=== PATIENT | male | born 1975 | race Caucasian/White ===

== ENCOUNTER 2022-10-12 04:18 | Day surgery (SDC) | payer BC ==
[2022-10-08 12:26] VITALS: BMI 31.0
[2022-10-12 14:17] VITALS: RESP 18
[2022-10-12] MEDS ORDERED: ONDANSETRON 4 MG/2 ML VIAL ONE (17:11)
[2022-10-12] MEDS ORDERED: MIDAZOLAM HCL 2 MG/2 ML SINGLE DOSE VIAL ONE (17:11)
[2022-10-12 18:54] VITALS: BP 128/80; PULSE 60; TEMP 98.4
== END 2022-10-12 18:30 | disposition home or self-care (01) ==
LOC: JASU-SURG 04:18
PROVIDERS: ATTEND Urology
PROC: 0TF4XZZ Fragmentation in Left Kidney Pelvis, External Approach (ICD-10-PCS; principal; 2022-10-12 16:00)
DX: N20.0 Calculus of kidney (principal)

== ENCOUNTER 2023-03-01 04:23 | Day surgery (SDC) | payer BC ==
[2023-02-25 11:01] VITALS: BMI 31.0
[2023-03-01 08:59] VITALS: RESP 20
[2023-03-01] MEDS ORDERED: MIDAZOLAM HCL 2 MG/2 ML SINGLE DOSE VIAL ONE (10:50)
[2023-03-01 12:10] VITALS: TEMP 97.5
[2023-03-01 13:18] VITALS: BP 128/96; PULSE 69
== END 2023-03-01 13:20 | disposition home or self-care (01) ==
LOC: JASU-SURG 04:23
PROVIDERS: ATTEND Urology
PROC: 0TF4XZZ Fragmentation in Left Kidney Pelvis, External Approach (ICD-10-PCS; principal; 2023-03-01 10:30)
DX: N20.0 Calculus of kidney (principal)

== ENCOUNTER 2023-10-25 04:17 | Day surgery (SDC) | payer BC ==
[2023-10-22 11:07] VITALS: BMI 31.0
[2023-10-25 06:18] VITALS: RESP 20
[2023-10-25] MEDS ORDERED: MIDAZOLAM HCL 2 MG/2 ML SINGLE DOSE VIAL ONE (07:47)
[2023-10-25] MEDS ORDERED: FENTANYL CITRATE/PF 50 MCG/ML VIAL ONE (07:47)
[2023-10-25] MEDS ORDERED: PROPOFOL 20 ML ONE (08:09)
[2023-10-25] MEDS ORDERED: ONDANSETRON 4 MG/2 ML VIAL ONE (08:19)
[2023-10-25 10:21] VITALS: BP 131/90; PULSE 82; TEMP 97
== END 2023-10-25 10:05 | disposition home or self-care (01) ==
LOC: JASU-SURG 04:17
PROVIDERS: ATTEND Urology
PROC: 0TF3XZZ Fragmentation in Right Kidney Pelvis, External Approach (ICD-10-PCS; principal; 2023-10-25 08:00)
DX: N20.0 Calculus of kidney (principal)

== ENCOUNTER 2024-03-13 04:18 | Day surgery (SDC) | payer BC ==
[2024-03-08 11:52] VITALS: BMI 31.0
[2024-03-13] MEDS ORDERED: MIDAZOLAM HCL 2 MG/2 ML SINGLE DOSE VIAL ONE (10:22)
[2024-03-13] MEDS ORDERED: PROPOFOL 40 ML ONE (10:22)
[2024-03-13 12:10] VITALS: BP 126/83; PULSE 87; RESP 18; TEMP 98.3
== END 2024-03-13 12:10 | disposition home or self-care (01) ==
LOC: JASU-SURG 04:18
PROVIDERS: ATTEND Urology
PROC: 0TF3XZZ Fragmentation in Right Kidney Pelvis, External Approach (ICD-10-PCS; principal; 2024-03-13 11:30)
DX: N20.0 Calculus of kidney (principal)